=== PATIENT | female | born 1955 | race Caucasian/White ===

== ENCOUNTER 2016-12-23 07:58 | Day surgery (SDC) | payer OTHER ==
--- NOTE | ~2016-12-23 | EGD ---
EGD REPORT [facility] [address] [id number] NAME: RUSSELL VIDALES : [birth year] STATUS : REG [facility]#: [id number] AGE: 61 ADM/REG DATE : 12/23/16 MR#: [id number] REPORT SERV DATE: 12/23/16 DICTATED BY: ALBER CORADO DATE: 12/23/16 REPORT STATUS : Draft TRANSCRIBED BY: [facility] DATE: 12/23/16 Endoscopy Center Patient Name: Russell Vidales Date of : 1955 Attending MD: ALBER CORADO MD Procedure Date No Time: 12/23/2016 Procedure: Upper GI endoscopy Indications: Dysphagia, Heartburn, Suspected esophageal reflux Referring MD: LISA MADRID Medicines: as per anesthesia Complications: No immediate complications. Procedure: Pre-Anesthesia Assessment: - ASA Grade Assessment: II - A patient with mild systemic disease. After obtaining informed consent, the endoscope was passed under direct vision. Throughout the procedure, the patient's blood pressure, pulse, and oxygen saturations were monitored continuously. The GIF [id number] was introduced through the mouth, and advanced to the third part of duodenum. The upper GI endoscopy was accomplished without difficulty. The patient tolerated the procedure well. Findings: A mild Schatzki ring (acquired) was found at the gastroesophageal junction. The scope was withdrawn. Dilation was performed with a Love dilator with no resistance at 44 Fr. A small hiatus hernia was present. The examined duodenum was normal. Impression: - Mild Schatzki ring. Dilated. - Hiatus hernia. - Normal examined duodenum. Recommendation: - Follow an antireflux regimen. - Continue present medications. Procedure Code(s): --- Professional --- 11718, Esophagogastroduodenoscopy, flexible, transoral; diagnostic, including collection of specimen(s) by brushing or washing, when performed (separate procedure) 34963, Dilation of esophagus, by unguided sound or bougie, single or multiple passes Diagnosis Code(s): --- Professional --- EGD REPORT [facility] [address] [place]. [address] NAME: RUSSELL VIDALES : [birth year] STATUS : REG [facility]#: [id number] AGE: 61 ADM/REG DATE : 12/23/16 MR#: [id number] REPORT SERV DATE: 12/23/16 DICTATED BY: ALBER CORADO. DATE: 12/23/16 REPORT STATUS : Draft TRANSCRIBED BY: [employer] DATE: 12/23/16 K22.2, Esophageal obstruction K44.9, Diaphragmatic hernia without obstruction or gangrene R13.10, Dysphagia, unspecified R12, Heartburn CPT copyright 2013 [employer]. All rights reserved. The codes documented in this report are preliminary and upon chick room supervisor review may be revised to meet current compliance requirements. ALBER CORADO MD 12/23/2016 10:04 AM This report has been signed electronically. Number of Addenda: 0 Note Initiated On: 12/23/2016 9:45 AM Scope Withdrawal Time 0 hours 0 minutes 0 seconds [address] [place] [address]
[~2016-12-23 07:58] MED LIST: GLUCPH PO; LISINOPRIL
== END 2016-12-23 23:59 | disposition home or self-care (01) ==
LOC: DMU 07:58
PROVIDERS: Internal Medicine Gastroenterology
PROC: 0DJ08ZZ Inspection of Upper Intestinal Tract, Via Natural or Artificial Opening Endoscopic (ICD-10-PCS; principal; 2016-12-23 09:30)
PROC: 0D757ZZ Dilation of Esophagus, Via Natural or Artificial Opening (ICD-10-PCS; 2016-12-23 09:30)
DX: K22.2 Esophageal obstruction (principal); K44.9 Diaphragmatic hernia without obstruction or gangrene; I10 Essential (primary) hypertension; E11.9 Type 2 diabetes mellitus without complications; Z90.710 Acquired absence of both cervix and uterus
CPT/HCPCS: 82962; J2370